=== PATIENT | female | born 1935 | race Caucasian/White ===

== ENCOUNTER 2018-07-19 12:46 | Emergency (ER) | payer MEDICARE ==
[~2018-07-19] VITALS: Ht 154.9 cm; Wt 49.9 kg
[~2018-07-19 12:46] MED LIST: ALBU6.7H INH; ALPR-624; CYCL-1 PO; DONE10TA7 PO; GABA-532 PO; HYDR-3972 PO; RANI150C4 PO; SYN0.088T PO
[2018-07-19 13:41] VITALS: BP 114/79
== END 2018-07-19 14:20 | disposition home or self-care (01) ==
LOC: ER 12:47
DX: S01.502A Unspecified open wound of oral cavity, initial encounter (principal); K08.89 Other specified disorders of teeth and supporting structures; G62.9 Polyneuropathy, unspecified; G89.29 Other chronic pain; Z98.890 Other specified postprocedural states; Z88.0 Allergy status to penicillin; Z88.2 Allergy status to sulfonamides; Z79.899 Other long term (current) drug therapy; X58.XXXA Exposure to other specified factors, initial encounter; Y93.89 Activity, other specified; Y92.89 Other specified places as the place of occurrence of the external cause; Y99.9 Unspecified external cause status
CPT/HCPCS: 99281